=== PATIENT | female | born 1985 | race Hispanic/Latino ===

== ENCOUNTER 2018-11-07 21:23 | Emergency (ER) | payer OTHER, MEDICAID, SELFPAY ==
[2018-11-07 21:29] VITALS: BP 154/100; PULSE 110; RESP 18; TEMP 37.2; O2SAT 98
[2018-11-07] MEDS: diphenhydrAMINE 50 MG/ML VIAL 25 MG IV (21:38)
[2018-11-07] MEDS: FAMOTIDINE 20 MG/50 ML PIGGYBACK 200 MG IV (21:39)
[2018-11-07 22:00] VITALS: BP 133/86; PULSE 96; RESP 16; O2SAT 99
[2018-11-07 23:00] VITALS: BP 132/83; PULSE 66; RESP 14; O2SAT 99
--- NOTE | 2018-11-07 23:36 | ED_ITS ---
HPI - Allergic Reaction General Chief complaint: Allergic Reaction Stated complaint: POSSIBLE ALLERGIC REACTION Time Seen by Provider: 11/07/18 23:35 Source: patient Mode of arrival: Ambulatory Limitations: no limitations History of Present Illness HPI narrative: Prior to arrival the patient was enjoying homemade pickles. She received the pickles as a give, she did not make them herself. She has had the pickles before. This evening, after having pickles she developed tingling in her hands and arms then erythema and hives. The hives spread across her chest and torso. She did not take medications. She came to the ER with these symptoms. There is no airway tightness or difficulty breathing. She had no chest pain. She never received antihistamines. Symptoms resolved in the ER without intervention. She has no prior history of food allergy or other allergic reactions. He denies recent illness. Related Data Previous Rx's Medication Instructions Recorded clotrimazole 1 appl TOPICAL SEE INSTRUCTIONS 08/01/16 #45 gm Allergies Allergy/AdvReac Type Severity Reaction Status Date / Time diclofenac [DICLOFENAC] Allergy Unknown Unverified 05/17/17 12:45 rizatriptan [RIZATRIPTAN] Allergy Unknown Unverified 05/17/17 12:45 sumatriptan [SUMATRIPTAN] Allergy Unknown Unverified 05/17/17 12:45 Review of Systems Review of Systems ROS Unobtainable: All systems reviewed & are unremarkable except as noted in HPI and below Constitutional Constitutional: Denies chills, Denies fever(s), Denies lethargy and Denies weakness Eyes Eyes: Denies irritation ENT Ears, Nose, Mouth, and Throat: Denies change in voice, Denies throat swelling and Denies tongue swelling Cardiovascular Cardiovascular: Denies chest pain, Denies irregular heart rhythm, Denies lightheadedness, Denies palpitations and Denies dyspnea Respiratory Respiratory: Denies cough, Denies dyspnea and Denies wheezing Gastrointestinal Gastrointestinal: Denies abdominal pain, Denies nausea and Denies vomiting Musculoskeletal Musculoskeletal: Denies back pain Integumentary/Breasts Skin/Breast: Reports as per HPI and Reports erythema Neurologic Neurologic: Denies weakness Endocrine Endocrine: Denies palpitations Allergic/Immunologic Allergic/Immunologic: Denies throat swelling, Denies tongue swelling and Denies wheezing [facility] Medical History (Updated 11/07/18 @ 23:51 by Sergey Mccullough MD) Headache (Acute) Surgical History (Updated 11/07/18 @ 23:51 by Sergey Mccullough MD) No significant past surgical history (Acute) Social History Smoking Status: Never smoker Social History Smoking Status: Never smoker Exam Initial Vital Signs Initial Vital Signs: Vital Signs Temperature 99 F 11/07/18 21:29 Pulse Rate 110 H 11/07/18 21:29 Respiratory Rate 18 11/07/18 21:29 Blood Pressure 154/100 H 11/07/18 21:29 Pulse Oximetry 98 11/07/18 21:29 Const General: cooperative and well developed Nutritional Appearance: well nourished Orientation: alert, awake, oriented x3 and not confused HENMT Head: normocephalic and atraumatic Nose: No nasal discharge Face and sinus: sinuses nontender and face symmetric Mouth: oral mucosae normal and moist mucous membranes Throat: posterior oropharynx normal, tonsils normal and uvula midline Eyes Conjunctivae: conjunctivae normal Neck Neck: full ROM, No lymphadenopathy and No tender Resp Effort & Inspection: normal respiratory effort, able to speak in complete sentences, no respiratory distress and no use of accessory muscles Auscultation: clear to auscultation bilaterally, no rales, no rhonchi and no wheezes Cardio Rate: regular rate Rhythm: regular rhythm Heart Sounds: no click, no gallops, no murmurs and no rubs Pulses: normal peripheral pulses Skin General: no rashes or lesions noted and No petechiae Neuro General: alert, oriented x3, gait normal and no focal motor deficits Speech: speech normal Course Course Course Narrative: Symptoms resolved without intervention. It is noted that there are multiple products inside the jar a pickles. Multiple spices are visualized. It is suggested that any item in that bottle could cause the allergic reaction. She is advised to avoid only that specific type of pickles. She should have Benadryl available. If she has ongoing allergic problems she should see an injection molding machine operator. Orders Ordered: Discontinued Medications Diphenhydramine HCl (Benadryl) 25 mg IV NOW ONE Stop: 11/07/18 21:39 Last Admin: 11/07/18 21:38 Dose: 25 mg Documented by: KAYLYN Famotidine (Pepcid) 20 mg in 50 mls @ 200 mls/hr IV NOW ONE Stop: 11/07/18 21:53 Last Infusion: 11/07/18 22:00 Dose: 200 mls/hr Documented by: Admin: 11/07/18 21:39 Dose: 200 mls/hr Documented by: KAYLYN Vital Signs Vital signs: Vital Signs - 8 hr 11/07/18 21:29 11/07/18 22:00 11/07/18 23:00 Temperature 99 F Pulse Rate 110 H 96 H 66 Respiratory Rate 18 16 14 Blood Pressure 154/100 H Blood Pressure [Right Arm] 133/86 132/83 Pulse Oximetry 98 99 99 Discharge Plan Departure Patient Disposition: Home Clinical Impression: Allergic reaction Qualifiers: Encounter type: initial encounter Qualified Code(s): T78.40XA - Allergy, unspecified, initial encounter Instructions: Food Allergy Activity Restrictions/Additional Instructions: Avoid the specific pickles that created the allergic reaction. I would recommend having Benadryl available in your house. If you experience signs of allergic reaction take Benadryl. If you have airway tightness or difficulty breathing come to the ER immediately. If you do not improve with Benadryl come to the ER. Prescriptions: No Action clotrimazole 1 % cream 1 appl Topical SEE INSTRUCTIONS Qty: 45 RF: 1
== END 2018-11-07 23:48 | disposition home or self-care (01) ==
PROVIDERS: Emergency Provider Emergency Medicine
DX: T78.40XA Allergy, unspecified, initial encounter (principal)
CPT/HCPCS: 36415; 96365; 96375; 99283; 99284; J1200

== ENCOUNTER 2023-02-11 15:04 | Emergency (ER) | payer OTHER, MEDICAID, SELFPAY ==
[2023-02-11 15:11] VITALS: BP 137/94; PULSE 71; RESP 16; TEMP 36.8; O2SAT 100; BMI 30.9
--- NOTE | 2023-02-11 15:26 | DI.RAD.S_ITS ---
PROCEDURE: XR CHEST 1V INDICATIONS: Short of breath TECHNIQUE: One view of the chest was acquired. COMPARISON: None. FINDINGS: Surgical changes and devices: None. Lungs and pleura: On this semiupright portable chest examination, no large pneumothorax or large pleural effusions are seen. No focal infiltrates are seen. Mediastinum: Mediastinal contours appear normal. Heart size is normal. Bones and chest wall: No suspicious bony lesions. Overlying soft tissues appear unremarkable. IMPRESSION: No acute cardiopulmonary abnormality is seen. Dictated by: Moe Fall M.D. on 02/11/2023 at 15:39 Approved by: Moe Fall M.D. on 02/11/2023 at 15:39
--- NOTE | 2023-02-11 15:40 | ED_ITS ---
HPI - General Adult General Chief complaint: Weakness Stated complaint: lethargic/red blood cells high/THS low/SOB Time Seen by Provider: 02/11/23 15:21 Source: patient Mode of arrival: Wheelchair History of Present Illness HPI narrative: Patient is a 37-year-old female. Has several chronic medical issues. She has seen her primary care doctor. Was told that her TSH was low and that her red blood cell count was high. She has had persistent lethargy and shortness of breath. No chest pain. She was told to come to the emergency department by her primary doctor because of the elevated red blood cell count in her shortness of breath further concern that maybe she was got a blood clot in her lungs. She has had subjective fevers. No cough. Related Data Previous Rx's Medication Instructions Recorded clotrimazole 1 % vaginal cream 1 appl topical SEE INSTRUCTIONS 08/01/16 ##45 Allergies Allergy/AdvReac Type Severity Reaction Status Date / Time diclofenac [DICLOFENAC] Allergy Unknown Unverified 05/17/17 12:45 rizatriptan [RIZATRIPTAN] Allergy Unknown Unverified 05/17/17 12:45 sumatriptan [SUMATRIPTAN] Allergy Unknown Unverified 05/17/17 12:45 acetaminophen [From Tylenol] AdvReac Verified 02/11/23 15:16 ibuprofen AdvReac Verified 02/11/23 15:16 Review of Systems Review of Systems ROS Unobtainable: All systems reviewed & are unremarkable except as noted in HPI and below Patient History Medical History Headache Surgical History (Updated 11/07/18 @ 23:51 by Sergey Mccullough MD) No significant past surgical history Social History Smoking Status: Never smoker Smoking Status: Never smoker alcohol intake frequency: a few times a month Substance Use Type: does not use Exam Initial Vital Signs Initial Vital Signs: Vital Signs Temperature 98.3 F 02/11/23 15:11 Pulse Rate 71 02/11/23 15:11 Respiratory Rate 16 02/11/23 15:11 Blood Pressure 137/94 H 02/11/23 15:11 Pulse Oximetry 100 02/11/23 15:11 Oxygen Delivery Method Room Air 02/11/23 15:11 HENMT Head: normal to inspection and normocephalic Resp Effort & Inspection: normal respiratory effort Cardio Rate: regular rate GI Inspection: normal to inspection and non-distended Skin General: no rashes or lesions noted Neuro General: patient alert, patient awake and moves all extremities Extrem General: normal to inspection and capillary refill normal Course Orders Ordered: ED Orders 02/11/23 15:26 XR chest 1V Stat 02/11/23 15:33 Complete Blood Count AUTO DIFF Stat Comprehensive Metabolic Panel Stat Covid-19 + FLU A/B + RSV - PCR Stat D Dimer Stat Free T3, Triiodothyronine Free Stat Free T4, Direct Thyroxine Stat Thyroid Stimulating Hormone Stat 02/11/23 16:00 Urine Microscopic Stat Vital Signs Vital signs: Vital Signs - 8 hr 02/11/23 15:11 Temperature 98.3 F Pulse Rate 71 Respiratory Rate 16 Blood Pressure 137/94 H Pulse Oximetry 100 Oxygen Delivery Method Room Air Medical Decision Making Lab Data Lab results reviewed: Yes I reviewed the patient's lab results. 02/11/23 15:33 02/11/23 15:33 Labs: Lab Results 02/11/23 02/11/23 Range/Units 15:33 16:00 WBC 7.1 (4.5-11.0) X10^3/uL RBC 4.97 (4.0-5.2) X10^6/uL Hgb 14.7 (12.0-16.0) g/dL Hct 42.7 (36-46) % MCV 85.9 (80-100) fL MCH 29.6 (26-34) PG MCHC 34.5 (30-36) % RDW 13.3 (11.6-14.8) % Plt Count 325 (150-400) X10^3/uL Neut % (Auto) 71.5 (50-75) % Lymph % (Auto) 23.3 L (25-40) % Prentiss % (Auto) 4.5 (3-14) % Eos % (Auto) 0.3 L (2-4) % Baso % (Auto) 0.4 (0-2) % Neut # (Auto) 5000 (7168-1210) /uL Lymph # (Auto) 1600 (1839-7888) /uL Prentiss # (Auto) 300 (0-900) /uL Eos # (Auto) 0 (0-450) /uL Baso # (Auto) 0 (0-100) /uL D-Dimer 248 (<500) ng/ml Sodium 137 (137-145) mmol/L Potassium 3.8 (3.4-5.1) mmol/L Chloride 104 (98-107) mmol/L Carbon Dioxide 24 (22-32) mmol/L BUN 13 (7-17) mg/dL Creatinine 0.71 (0.52-1.04) mg/dL Estimated GFR > 60 (>60) mL/min BUN/Creatinine Ratio 18.3 (6-22) Glucose 92 (70-100) mg/dL Calcium 9.6 (8.4-10.2) mg/dL Total Bilirubin 1.7 H (0.2-1.3) mg/dL AST 26 (14-36) IU/L ALT 29 (<35) IU/L Alkaline Phosphatase 46 (38-126) U/L Total Protein 7.9 (6.3-8.2) g/dL Albumin 4.6 (3.5-5.0) g/dL Globulin 3.3 (1.7-4.1) g/dL Albumin/Globulin Ratio 1.4 (1.0-2.8) TSH 0.654 (0.47-4.68) uIU/mL Free T4 0.92 (0.78-2.19) ng/dL Free T3 2.66 L (2.77-5.27) pg/mL Urine RBC 0-1/hpf (0-5/HPF) Urine WBC 0-1/hpf (0-5/HPF) Ur Squamous Epith Cells 0-1 /hpf (0-5/HPF) Calcium Oxalate Crystal Few H Urine Bacteria Few (2-10) H (None) Urine Mucus 4+ H (Negative) Ur Culture Indicated? Cult not indicated Urine Dip Bedside Urine Glucose Negative Bedside Urine Bilirubin + 1 Bedside Urine Ketone - Negative Urine Specific [place] 1.020 Bedside Urine Occult Blood - Negative Bedside Urine pH 6.0 Bedside Urine Protein +/- 15 Bedside Urine Urobilinogen - Negative Bedside Urine Nitrite - Negative Bedside Urine Leukocytes - Negative Esterase Point of care testing: Urine Dip Bedside Urine Glucose Negative Bedside Urine Bilirubin + 1 Bedside Urine Ketone - Negative Urine Specific [place] 1.020 Bedside Urine Occult Blood - Negative Bedside Urine pH 6.0 Bedside Urine Protein +/- 15 Bedside Urine Urobilinogen - Negative Bedside Urine Nitrite - Negative Bedside Urine Leukocytes - Negative Esterase Imaging Data Chest x-ray: Radiologist's Impression: PROCEDURE: XR CHEST 1V INDICATIONS: Short of breath TECHNIQUE: One view of the chest was acquired. COMPARISON: None. FINDINGS: Surgical changes and devices: None. Lungs and pleura: On this semiupright portable chest examination, no large pneumothorax or large pleural effusions are seen. No focal infiltrates are seen. Mediastinum: Mediastinal contours appear normal. Heart size is normal. Bones and chest wall: No suspicious bony lesions. Overlying soft tissues appear unremarkable. IMPRESSION: No acute cardiopulmonary abnormality is seen. MDM Narrative Medical decision making narrative: Her TSH and red blood cell count today are normal. I did inform her of this. D-dimer is negative. No indication that there was a pneumonia. No indication for antibiotics. No leukocytosis. Patient has vague symptoms and should contact her primary care doctor for a follow-up. She expressed understanding. Discharge Plan Departure Patient Disposition: Home Clinical Impression: Fatigue Instructions: DI for Fatigue Activity Restrictions/Additional Instructions: Your thyroid test today and your red blood cell count today are normal. I recommend that you contact your primary care doctor for a follow-up. Be sure that you follow through with following up with your body technician/painter. Prescriptions: No Action clotrimazole 1 % cream 1 appl Topical SEE INSTRUCTIONS Qty: 45 1RF Stand Alone Forms: Patient Portal/API
[2023-02-11 15:51] LABS: Add Manual Diff / Slide Review NO; Basophils Absolute Auto 0 /uL (0-100); Basophils Percent Auto 0.4 % (0-2); Eosinophils Absolute Auto 0 /uL (0-450); Eosinophils Percent Auto 0.3 % (2-4); Hematocrit 42.7 % (36-46); Hemoglobin 14.7 g/dL (12.0-16.0); Lymphocytes Absolute Auto 1600 /uL (1100-4500); Lymphocytes Percent Auto 23.3 % (25-40); Mean Corpuscular HGB Conc 34.5 % (30-36); Mean Corpuscular Hemoglobin 29.6 PG (26-34); Mean Corpuscular Volume 85.9 fL (80-100); Monocytes Absolute Auto 300 /uL (0-900); Monocytes Percent Auto 4.5 % (3-14); Neutrophils Absolute Auto 5000 /uL (1500-7000); Neutrophils Percent Auto 71.5 % (50-75); Platelet Count 325 X10^3/uL (150-400); Red Blood Cell Count 4.97 X10^6/uL (4.0-5.2); Red Cell Distribution Width 13.3 % (11.6-14.8); White Blood Cell Count 7.1 X10^3/uL (4.5-11.0)
[2023-02-11 15:57] LABS: D Dimer 248 ng/ml (<500)
[2023-02-11 15:59] LABS: Alanine Aminotransferase 29 IU/L (<35); Albumin 4.6 g/dL (3.5-5.0); Albumin Globulin Ratio 1.4 (1.0-2.8); Alkaline Phosphatase 46 U/L (38-126); Aspartate Aminotransferase 26 IU/L (14-36); BUN Creatinine Ratio 18.3 (6-22); Bilirubin Total 1.7 mg/dL (0.2-1.3); Blood Urea Nitrogen 13 mg/dL (7-17); Calcium 9.6 mg/dL (8.4-10.2); Carbon Dioxide 24 mmol/L (22-32); Chloride 104 mmol/L (98-107); Estimated Glomerular Filt Rate > 60 mL/min (>60); Globulin 3.3 g/dL (1.7-4.1); Glucose 92 mg/dL (70-100); HEMOLYSIS < 15 (0-50); Potassium 3.8 mmol/L (3.4-5.1); Sodium 137 mmol/L (137-145); Total Protein 7.9 g/dL (6.3-8.2)
[2023-02-11 16:13] LABS: Mucus Urine 4+ (Negative); RBC Urine 0-1/HPF (0-5/HPF); WBC Urine 0-1/HPF (0-5/HPF)
[2023-02-11 16:14] LABS: Bacteria Urine Few (2-10); Calcium Oxalate Crystals Urine Few; Culture Indicated Urine Cult Not Indicated; Squamous Epithelial Cell Urine 0-1 /HPF (0-5/HPF)
[2023-02-11 16:22] LABS: Influenza A - CEPHEID Flu A NEGATIVE (NEGATIVE); Influenza B - CEPHEID Flu B NEGATIVE (NEGATIVE); Respiratory Syncytial Virus Negative (Negative)
[2023-02-11 16:34] LABS: Free T3, Triiodothyronine Free 2.66 pg/mL (2.77-5.27); Free T4, Direct Thyroxine 0.92 ng/dL (0.78-2.19)
[2023-02-11 16:49] LABS: Thyroid Stimulating Hormone 0.654 uIU/mL (0.47-4.68)
--- NOTE | 2023-02-11 17:27 | PC.NURSE ---
pt ambulatory to [facility] in [place]
[2023-02-11 17:54] VITALS: BP 137/79; PULSE 82; RESP 16; O2SAT 98
[2023-02-11 18:02] LABS: COVID-19 CEPHEID 4-PLEX PCR Negative (Negative)
== END 2023-02-11 17:55 | disposition home or self-care (01) ==
PROVIDERS: Emergency Provider Emergency Medicine
DX: R53.83 Other fatigue (principal); R06.02 Shortness of breath; R79.9 Abnormal finding of blood chemistry, unspecified
CPT/HCPCS: 0241U; 36415; 71045; 80053; 81003; 81015; 84439; 84443; 84481; 85025; 85379; 99283; 99284